=== PATIENT | male | born 1950 | race Caucasian/White ===

== ENCOUNTER 2023-10-26 12:43 | Emergency (ER) | payer OTHER, SELFPAY ==
[2023-10-26 13:05] VITALS: BP 166/85; PULSE 81; RESP 20; TEMP 37.1; O2SAT 97
--- NOTE | 2023-10-26 13:23 | ED.SKABFB ---
HPI - Skin/Abscess/Foreign Bdy General Chief complaint: Skin/Abscess/Foreign Body Stated complaint: RASH AROUND MOUTH & NOSE Time Seen by Provider: 10/26/23 13:24 Source: patient Mode of arrival: ambulatory Limitations: no limitations History of Present Illness HPI narrative: 73-year-old male presents with complaint of painful rash around mouth and to nose for approximately 1 week. States started to nose and corners of mouth and has gotten progressively worse. States that skin is burning and feels dry. Has been applying Carmex with no relief. Reports that nares feel irritated. Reports that he blows his nose often due to runny nose and has been doing that for years.. Shaves every other day. Concerned he gave himself an infection but unsure how. All systems reviewed and negative except as noted above. Related Data Home Medications Medication Instructions Recorded Confirmed lisinopril 20 1 tablet PO DAILY 08/20/23 10/26/23 mg-hydrochlorothiazide 12.5 mg tablet Allergies Allergy/AdvReac Type Severity Reaction Status Date / Time No Known Allergies Allergy Unknown Verified 10/26/23 13:08 Review of Systems Review of Systems: CONSTITUTIONAL: Denies fever, chills, or sweats. EYES: Denies visual changes, redness, or discharge. ENT: Denies rhinorrhea, congestion, sore throat, or otalgia. CARDIOVASCULAR: Denies chest pain, palpitations, or edema. RESPIRATORY: Denies cough or dyspnea. GASTROINTESTINAL: Denies abdominal pain, nausea, vomiting, or diarrhea. GENITOURINARY: Denies dysuria or hematuria. SKIN: Reports painful rash to nose and face. MUSCULOSKELETAL: Denies back pain, joint pain, or myalgia. NEUROLOGIC: Denies headache, numbness, or weakness. PSYCHIATRIC: Denies anxiety or depression. All other systems reviewed are negative, except as documented in HPI. [facility] Past Medical History Medical History (Updated 10/26/23 @ 13:32 by Sandra Donaldson NP) Hypertension Surgical History Surgical History History of orthopedic surgery Family History Family History Sibling Diabetes mellitus Father Hypertension Family history of malignant neoplasm of gastrointestinal tract, Onset Age: 59 Patient's father is , Onset Age: 59 Mother Hypertension Family history of congestive heart failure Patient's mother is , Onset Age: 81 Family history of cardiovascular disease Social History Social History (Updated 08/20/23 @ 14:38 by Brianna Garcia) Social History: Caffeine-none Smoking packs per day: 1.5 Smoking cigarettes per day: 30.0 Years smoked: 55 Smoking pack-years: 82.50 Smoking status: Current every day smoker (not interested in quitting) Alcohol intake: current Alcohol use details: wine daily Substance use: never Substance use type: does not use Lack of Transportation: No Lack of Food: Never True Current Housing: I Have Housing Concerned About Future Housing: No Difficulty Paying Gas/Electric Bills: No Difficulty Paying for Meds: No Currently Unemployed: No Education: Trade/Vocational Certificate Difficulty w/ Childcare or Family Care: No Comments At time of signature, agree with nursing past medical, surgical, social and family history. There is no relevant family history pertinent to the presenting complaint. Exam Narrative: GENERAL: This is a well-nourished, well-developed patient, in no apparent distress. HEAD: normocephalic, atraumatic. EYES: PERRL. Sclera clear/white. Vision is grossly intact. EARS: External ears normal NOSE: Erythema and swelling to nares, tip of nose. THROAT: Mucous membranes moist, posterior pharynx clear. NECK: Neck supple, non-tender without lymphadenopathy, masses or thyromegaly. CARDIOVASCULAR: Regular rate and rhythm without murmurs, gallops, or rubs. RESPIRATORY: Clear to auscultation.
== END 2023-10-26 13:39 | disposition home or self-care (01) ==
PROVIDERS: Emergency Provider Nurse Practitioner Family; PCP Family Medicine
DX: L03.211 Cellulitis of face (principal); I10 Essential (primary) hypertension; F17.210 Nicotine dependence, cigarettes, uncomplicated
CPT/HCPCS: 99213; G0463